=== PATIENT | female | born 1995 | race Two or more races ===

== ENCOUNTER 2018-09-01 05:32 | Observation (INO) | payer SELFPAY ==
[~2018-09-01] VITALS: Ht 157.5 cm; Wt 63.5 kg
[2018-09-01] MEDS ORDERED: ACETAMINOPHEN 325 MG TABLET. PO PRN ×2 (05:45→15:30)
[2018-09-01] MEDS ORDERED: ONDANSETRON PF 4 MG/2 ML VIAL. IV PRN (05:45)
[2018-09-01] MEDS ORDERED: MAG HYDROX/ALUMINUM HYD/SIMETH 30 ML ORAL.SUSP PO PRN ×3 (05:45→15:30)
[2018-09-01 06:11] LABS: BILIRUBIN,URINE NEGATIVE (NEG); CLARITY,URINE CLEAR; COLOR,URINE YELLOW; NITRITE,URINE NEGATIVE (NEG); PROTEIN,URINE NEGATIVE (NEG-TRACE); UROBILINOGEN,URINE 0.2 mg/dL (0.2 mg/dL)
[2018-09-01 06:40] LABS: BARBITURATES NEG (NEG); BENZODIAZEPINES NEG (NEG); CANNABINOIDS NEG (NEG); COCAINE NEG (NEG); METHADONE NEG (NEG); OPIATES NEG (NEG); PHENCYCLIDINE NEG (NEG)
[2018-09-01 06:42] LABS: AMPHETAMINE/METHAMPHETAMINE NEG (NEG)
[2018-09-01 06:44] LABS: BACTERIA,URINE MODERATE /HPF (0-FEW); RBC,URINE 0 /HPF (0-2); SQUAMOUS EPITHELIAL CELL,UR MANY /LPF
--- NOTE | 2018-09-01 06:52 | RAD ---
Limited obstetrical ultrasound 09/01/2018. Reason for exam: No care. Check size and dates. A living intrauterine fetus is demonstrated, and was in cephalic position at the time of scanning. Heart rate of 135 bpm was seen. The placenta is shown anteriorly and does not reach the cervix. Amniotic fluid volume appears appropriate, with 4 quadrant JASMINA measuring 9.4 cm. Although a full anatomic survey was not undertaken, no anomaly was encountered. Evaluation is slightly limited by late stage of . The following age estimates were obtained: BPD: 36 weeks 3 days. HC: 35 weeks 6 days. AC: 36 weeks 5 days. FL: 36 weeks 4 days. Composite ultrasound estimated is 36 weeks 3 days, giving EDDIE of 09/26/2018. Estimated weight is 2974 g +/- 440 g. IMPRESSION: Living intrauterine fetus with estimated age by ultrasound measurements of 36 weeks 3 days. Electronically signed by: Bud Chance Jr., MD (09/01/2018 6:47 AM) [id number]
[2018-09-01 07:00] LABS: BASO % 1 % (0-3); EOS # 0.1 x10^3/uL (0.0-0.7); EOS % 1 % (0-3); HEMATOCRIT 34.3 % (36.0-47.0); HEMOGLOBIN 11.3 g/dL (12.0-15.5); LYMPH # 1.8 x10^3/uL (1.0-4.8); LYMPH % 25 % (24-48); MEAN CORPUSCULAR HEMOGLOBIN 25 pg (25-35); MEAN CORPUSCULAR HGB CONC 33 g/dL (31-37); MEAN CORPUSCULAR VOLUME 76 fL (79-100); MONO # 0.6 x10^3/uL (0.0-1.1); MONO % 8 % (0-9); NEUT # 4.9 x10^3uL (1.8-7.7); NEUT % 66 % (31-73); PLATELET COUNT 161 x10^3/uL (140-400); RED BLOOD COUNT 4.54 x10^6/uL (3.50-5.40); RED CELL DISTRIBUTION WIDTH 15.1 % (11.5-14.5); WHITE BLOOD COUNT 7.4 x10^3/uL (4.0-11.0)
[2018-09-01 08:00] VITALS: BP 119/57
[2018-09-01] MEDS ORDERED: IV RINGERS,LACTATED 1000ML 1,000 ML IV SCH (08:03)
[2018-09-01] MEDS ORDERED: AMPICILLIN SODIUM 2 GM in IV NORMAL SALINE 100ML 100 ML IV ONE (08:15)
[2018-09-01] MEDS ORDERED: 0.9 % SODIUM CHLORIDE 10 ML DISP.SYRIN. IV PRN ×2 (08:15→15:30)
[2018-09-01] MEDS ORDERED: CITRIC ACID/SODIUM CITRATE 30 ML SOLUTION. PO PRN (08:15)
[2018-09-01] MEDS ORDERED: OXYTOCIN 30 UNIT/500 ML PREMIX 500 ML IV PRN ×2 (08:15→15:30)
[2018-09-01] MEDS ORDERED: LIDOCAINE 1% PF 30 ML VIAL. INJ PRN (08:15)
[2018-09-01] MEDS ORDERED: BUTORPHANOL 2 MG/ML VIAL. IV PRN ×2 (08:15)
[2018-09-01] MEDS ORDERED: TERBUTALINE 1 MG/ML VIAL. SQ PRN (08:15)
[2018-09-01] MEDS: IV RINGERS,LACTATED 1000ML 1,000 ML IV SCH ×2 (08:22→08:57)
[2018-09-01] MEDS: fentaNYL PF VIAL 100 MCG/2 ML VIAL IV PRN ×2 (09:58→15:46)
[2018-09-01] MEDS ORDERED: AMPICILLIN SODIUM 1 GM in IV NORMAL SALINE 50ML 50 ML IV SCH (12:00)
--- NOTE | 2018-09-01 15:11 | PDOC1 ---
OB - History Hx of Present Care: Limited Care Obstetrical Complications: None Medical Complications: None Past Family/Social History * Past Medical, Surgical, Family and Obstetric Histories reviewed from chart. Blood Type: Unknown Rubella: Unknown RPR/VDRL: Unknown GBS Status: Unknown HBsAG: Unknown OB - Chief Complaint & HPI Date of Admission: Date of Admission: Sep 01, 2018 at 05:32 Chief Complaint/History : 2 Para: 1 EDC: Aug 31, 2018 Reason for admission: active labor Admission Nurse Assessment Rev: Yes OB - Admission Exam Physical Exam Vitals: VS - Last 72 Hours, by Label Date Time Temp Pulse Resp B/P (MAP) Pulse Ox O2 Delivery O2 Flow Rate FiO2 09/01/18 09:58 18 Room Air 09/01/18 08:00 97.8 90 18 119/57 (77) Room Air 97.8 HEENT: Normal, Nasal Mucosa Normal, Oropharynx Normal, Moist Membranes, Fontanelles Normal Heart: Regular Rate Lungs: Clear, Equal Abdomen: Gravid Extremities: Normal Pulses, No tenderness or swelling Reflexes: Normal Effacement: 100% Station: -3 Membranes: Intact Amniotic Fluid: Clear Heart Rate: Normal Accelerations: Accelerations Present Short Term Variability: Present Contractions on Admission: 6-10 Minutes Apart Intensity: Firm Assessment/Plan Assessment/Plan [email or web address] VIKY RAMON MD Sep 01, 2018 15:11
--- NOTE | 2018-09-01 15:13 | PDOC ---
VAGINAL DELIVERY DATE DATE: 09/01/18 TIME: 15:10 : 2 Para: 1 EDC: Aug 31, 2018 VAGINAL DELIVERY: VTX VACCUM ASSISTED: No PLACENTA: Spontaneous SEX: Female WEIGHT 6#9oz Nuchal Cord: No Amniotic Fluid: Clear PAIN: Natural EPISIOTOMY: No EXTENSION: No EBL 300cc COMPLICATIONS None CONDITION Stable Signs of Intrauterine Infectio: None Shoulder Dystocia: No DIAGNOSIS VIKY Watson MD Sep 01, 2018 15:13
[2018-09-01] MEDS ORDERED: PHENYLEPH/MINERAL OIL/PETROLAT RECTAL OINTMENT 28GM TUBE. RC PRN (15:30)
[2018-09-01] MEDS ORDERED: ZOLPIDEM 5 MG TABLET. PO PRN (15:30)
[2018-09-01] MEDS ORDERED: HYDROCORTISONE 1% TOPICAL OINTMENT 30GM TUBE. TP PRN (15:30)
[2018-09-01] MEDS ORDERED: SIMETHICONE 80 MG TAB.CHEW PO PRN (15:30)
[2018-09-01] MEDS ORDERED: diphenhydrAMINE HCL 25 MG CAPSULE PO PRN (15:30)
[2018-09-01] MEDS ORDERED: MAGNESIUM HYDROXIDE 2,400 MG/30 ML ORAL.SUSP. PO PRN (15:30)
[2018-09-01] MEDS ORDERED: BENZOCAINE 20% TOPICAL AEROSOL SPRAY 57GM CAN. TP PRN (15:30)
[2018-09-01] MEDS: IBUPROFEN 400 MG TABLET. PO PRN (16:49)
[2018-09-01] MEDS ORDERED: FERROUS SULFATE 325 MG TABLET. PO SCH (17:00)
[2018-09-01] MEDS ORDERED: HYDROcodone/APAP 5/325MG 1 TAB TABLET PO PRN (17:00)
[2018-09-01] MEDS: HYDROcodone/APAP 5/325MG 1 TAB TABLET PO PRN (17:33)
[2018-09-01 17:58] VITALS: BP 116/68
[2018-09-01] MEDS ORDERED: DIPHTH,PERTUSS(ACELL),TET TOX 0.5 ML DISP.SYRIN. VAX IM ONE (18:30)
[2018-09-01 22:07] VITALS: BP 94/45
[2018-09-02] MEDS: IBUPROFEN 400 MG TABLET. PO PRN ×3 (01:15→19:57)
[2018-09-02 01:31] VITALS: BP 96/54
[2018-09-02 05:45] VITALS: BP 105/49
--- NOTE | 2018-09-02 08:30 | PDOC ---
Provider Note Provider Note Doing well VSS Uterus NTTP FU in AM VIKY RAMON MD Sep 02, 2018 08:30
[2018-09-02 11:35] VITALS: BP 112/58
[2018-09-02 16:46] VITALS: BP 98/68
[2018-09-02] MEDS: HYDROcodone/APAP 5/325MG 1 TAB TABLET PO PRN (19:58)
[2018-09-02 22:30] VITALS: BP 99/62
[2018-09-03] MEDS: IBUPROFEN 400 MG TABLET. PO PRN ×2 (05:43→13:41)
[2018-09-03 05:50] VITALS: BP 96/59
--- NOTE | 2018-09-03 07:28 | PDOC3 ---
OB DISCHARGE SUMMARY DATE OF ADMISSION: 09/01/18 DATE OF DISCHARGE: 09/03/18 REASON FOR ADMISSION: Onset of labor INTRAPARTUM PROCEDURES: Spontanous Vag Deliv DISCHARGE DIAGNOSIS: Term Delivered DISCHARGE INFORMATION: Activity (ad jackie), Diet (regular), Instructions (pelvic rest x 6 wks) HOSPITAL COURSE Term gestation delivered vaginally without complications. LUIS WATSON Jr, MD Sep 03, 2018 07:28
--- NOTE | 2018-09-03 07:29 | DISCH ---
DISCHARGE INSTRUCTIONS Condition on Discharge Condition on Discharge: Stable Activity After Discharge Activity Instructions for Disc: Activity as tolerated Lifting Instructions after Dis: No heavy lifting Driving Instructions after Dis: Do not drive today Diet after Discharge Diet after Discharge: Regular Contacting the DRChano after DC Call your doctor for: Concerns you may have Follow-Up Follow up with: Dr. Sadler in 1 week LUIS WATSON Jr, MD Sep 03, 2018 07:29
[2018-09-03] MEDS ORDERED: NAPR-683 PO (07:31)
[2018-09-03 08:35] VITALS: BP 103/60
--- NOTE | 2018-09-03 09:48 | NUR ---
Discharge Discharge instructions given to patient at this time. No questions or concerns noted. To follow up with DR Sadler in 1 week. Waiting for discharge instructions and BC to be completed, will continue to monitor.
== END 2018-09-03 14:24 | disposition home or self-care (01) ==
LOC: 3 SO LND 05:32 → 3 NORTH 17:34
PROVIDERS: ADMIT Specialist; ATTEND Specialist
DX: O62.9 Abnormality of forces of labor, unspecified (principal); O26.893 Other specified pregnancy related conditions, third trimester; Z23 Encounter for immunization; Z3A.36 36 weeks gestation of pregnancy
CPT/HCPCS: 36415; 76815; 80307; 81001; 85014; 85025; 86592; 86703; 86762; 86850; 86900; 86901; 87086; 87340; 87653; 90471; 90472; 90715; 90756; 96365; 96366; 96367; 96375; 96376; G0378; G0379; J0290; J2590; J3010; J7120; Q2035